=== PATIENT | male | born 1950 | race Caucasian/White ===

== ENCOUNTER → 2019-02-26 09:05 | Outpatient (CLI) | payer MEDICARE, SELFPAY ==
[2019-02-26 11:27] LABS: Prostate Specific Antigen 0.273 ng/mL (0.10-4.00)
== END ==
PROVIDERS: PCP Family Medicine; Visit Provider Radiology Radiation Oncology
DX: C61 Malignant neoplasm of prostate (principal)
CPT/HCPCS: 36415; 84153

== ENCOUNTER → 2019-05-01 09:15 | Outpatient (CLI) | payer OTHER, SELFPAY ==
--- NOTE | 2019-05-01 | DI.RAD.S_ITS ---
PROCEDURE: XR KUB INDICATIONS: KIDNEY STONES TECHNIQUE: One view of the abdomen acquired. COMPARISON: [facility], CT, ABDOMEN/PELVIS WITH CONTRAST, 05/09/2017, 10:19. [facility], MR, MR PELVIS WITHOUT CONTRAST, 08/29/2017, 13:14. FINDINGS: Surgical changes and devices: None. Bowel: Bowel gas pattern is normal. However, there is a relative prominence of bowel contents. Soft tissues: No suspicious abdominal calcifications. Visualized solid organ contours appear normal in size. Postoperative clips are seen overlying the low mid pelvis, which are attributed to this patient's previously placed prostate markers. Bones: No suspicious bony lesions. Age-appropriate bony degenerative changes are seen. IMPRESSION: No stones are seen. However, there is relatively prominent bowel contents and stones may be obscured. If clinically appropriate, please consider a followup noncontrast CT of the abdomen and pelvis. Dictated by: Benito Austin M.D. on 05/01/2019 at 9:57 Approved by: Benito Austin M.D. on 05/01/2019 at 9:59
== END ==
PROVIDERS: PCP Family Medicine; Visit Provider Specialist
DX: N20.0 Calculus of kidney (principal); C61 Malignant neoplasm of prostate
CPT/HCPCS: 36415; 74018; 84153

== ENCOUNTER → 2019-05-16 09:06 | Outpatient (CLI) | payer OTHER, SELFPAY ==
--- NOTE | 2019-05-16 09:11 | DI.CT.S_ITS ---
PROCEDURE: CT KIDNEY URETER BLADDER (KUB) INDICATIONS: Calculus of kidney TECHNIQUE: Noncontrast 5 mm thick sections acquired from the diaphragms to the symphysis. 5 mm thick coronal and sagittal reformats were then performed. For radiation dose reduction, the following was used: automated exposure control, adjustment of mA and/or kV according to patient size. COMPARISON: [facility], CT, ABDOMEN/PELVIS WITH CONTRAST, 05/09/2017, 10:19. [facility], CT, KIDNEY/ URETER/BLADDER, 09/17/2015, 10:22. FINDINGS: Image quality: Excellent. Lung bases: Lung bases are clear. Heart size is normal. Urinary system: Both kidneys are normal in size. Punctate left renal calculus versus dystrophic calcification seen on image 34 series 2 which is unchanged. Additional punctate calcifications in the right renal hilum on image 37 series 2 is unchanged. No hydronephrosis or perinephric fat stranding. Both ureters appear non-dilated throughout their expected courses. Bladder is partially decompressed although there is possible circumferential bladder wall thickening which appears chronic; no calcified bladder stones. Interval resolution of the previously seen bladder calculus. Other solid organs: Liver is normal in size. Gallbladder unremarkable. Pancreas is normal in contours. Nonspecific pancreatic calcifications in the body. Spleen is normal in size. No adrenal nodules. Peritoneum and bowel: Unenhanced bowel loops demonstrate normal wall thickness and caliber. No free fluid or air. Colonic diverticulosis. The rectum is grossly unremarkable. Normal appendix. Nodes and vessels: No retroperitoneal or mesenteric adenopathy by size criteria. Infrarenal abdominal aortic aneurysm measuring 3.5 x 3.8 cm on image 42 series 2 is slightly enlarged, previously 3.5 x 3.1 cm on 05/09/17. Recommend continued surveillance with serial ultrasound. Abdominal wall: Tiny fat-containing umbilical hernia Pelvis: Bilateral small fat-containing inguinal hernias. No pelvic adenopathy. Bones: No suspicious bony lesions. No vertebral body compression fractures. IMPRESSION: No evidence of urinary obstruction. Punctate bilateral renal calcifications as above which are grossly unchanged since 09/17/15. Interval resolution of bladder calculus. 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 Slight progression in small infrarenal abdominal aortic aneurysm. Recommend continued surveillance with serial ultrasound. Additional chronic and incidental findings as above. Dictated by: Juan Pablo Jama M.D. on 05/16/2019 at 10:42 Approved by: Juan Pablo Jama M.D. on 05/16/2019 at 10:59
== END ==
PROVIDERS: PCP Family Medicine; Visit Provider Specialist
DX: N20.0 Calculus of kidney (principal); I71.4 Abdominal aortic aneurysm, without rupture; K57.90 Diverticulosis of intestine, part unspecified, without perforation or abscess without bleeding; K40.20 Bilateral inguinal hernia, without obstruction or gangrene, not specified as recurrent
CPT/HCPCS: 74176

== ENCOUNTER → 2019-06-07 09:49 | Outpatient (CLI) | payer OTHER, SELFPAY ==
[2019-06-07 11:38] LABS: Prostate Specific Antigen 0.272 ng/mL (0.10-4.00)
== END ==
PROVIDERS: PCP Family Medicine; Visit Provider Radiology Radiation Oncology
DX: C61 Malignant neoplasm of prostate (principal)
CPT/HCPCS: 36415; 84153

== ENCOUNTER → 2019-12-20 08:42 | Outpatient (CLI) | payer OTHER, SELFPAY ==
[2019-12-20 10:27] LABS: Prostate Specific Antigen 0.146 ng/mL (0.10-4.00)
== END ==
PROVIDERS: Referring Provider Radiology Radiation Oncology; Visit Provider Radiology Radiation Oncology
DX: C61 Malignant neoplasm of prostate (principal)
CPT/HCPCS: 36415; 84153

== ENCOUNTER 2019-12-20 17:04 | Emergency (ER) | payer OTHER, SELFPAY ==
[2019-12-20 17:41] VITALS: BP 163/97; PULSE 75; RESP 16; TEMP 36.4; O2SAT 98; BMI 34.0
[2019-12-20 18:00] VITALS: BP 156/83; PULSE 85; RESP 21; O2SAT 95
[2019-12-20] MEDS: LIDOCAINE 2% W/EPI INJ 20 ML INJ (19:14)
[2019-12-20] MEDS: TRAMADOL 50 MG PREPACK 1 BOTTLE MISC (19:16)
[2019-12-20] MEDS: DOXYCYCLINE HYCLATE 100 MG TABLET PO (19:16)
--- NOTE | 2019-12-21 00:27 | ED_ITS ---
HPI - Skin/Abscess/Foreign Bdy <BOLA Paniagua - Last Filed: 12/21/19 00:52> General Chief complaint: Skin/Abscess/Foreign Body Stated complaint: states infected mass on inner right thigh Time Seen by Provider: 12/20/19 17:44 Source: patient Mode of arrival: Ambulatory Limitations: no limitations History of Present Illness HPI narrative: This is a 69-year-old male, smoker, who seeks care at [facility] was referred to ED for evaluation and treatment for right buttock abscess. Patient reports he noticed a small lump under right buttock 3- 4 weeks ago which progressively getting bigger and painful and states now it is about 3 In in diameter. Patient reports he had similar lump near the testis which did not require drainage. Patient denies fever, chills, nausea or vom iting. Patient states he has started taking old medication amoxicillin for 10 day course b.i.d. which she stopped 5 days ago without much improvement. Patient states at rest there is no pain but it increases to 10/10 with movement. Patient denies history of diabetes or immunosuppression. Patient reports has been having diarrhea for last 2 weeks with amoxicillin intake but denies bright red blood, dark stool, or odorous tarry stools. Related Data Home Medications Medication Instructions Recorded Confirmed ASPIRIN (Aspirin *) 325 mg PO #0 12/03/06 Previous Rx's Medication Instructions Recorded doxycycline hyclate 100 mg PO BID 7 Days #14 cap 12/20/19 Allergies Allergy/AdvReac Type Severity Reaction Status Date / Time ampicillin [AMPICILLIN] Allergy Unknown Verified 12/20/19 17:41 Review of Systems <BOLA Paniagua - Last Filed: 12/21/19 00:52> Review of Systems Narrative: General: Denies fever, chills, fatigue, malaise, sweats. HEENT: Denies sinus pain, ear pain, sore throat, difficulty swallowing, dizziness. Respiratory: Denies dyspnea, cough, wheezing, hemoptysis, sputum. Cardiovascular: Denies chest pain, palpitations, orthopnea, edema. Gastrointestinal: Denies nausea, vomiting, abdominal pain, (+) diarrhea, constipation, melena. : Denies dysuria, frequency, incontinence, hematuria, urinary retention. Musculoskeletal: Denies weakness, joint pain or bony pain. Skin: See HPI Neurologic: Denies weakness, headache, numbness, change in speech, confusion, seizures, incoordination. Psychiatric: No concerning psychosocial issues. 12-point review of systems is negative except for those stated above. Patient History <BOLA Paniagua - Last Filed: 12/21/19 00:52> Medical History GERD (gastroesophageal reflux disease) (Acute) Social History Smoking Status: Current every day smoker Smoking Status: Current every day smoker alcohol intake frequency: 0-2 drinks per day Substance Use Type: does not use Exam <BOLA Paniagua - Last Filed: 12/21/19 00:52> Narrative Exam Narrative: General appearance: well developed, well nourished, in moderate discomfort. Head: normocephalic, atraumatic, no scalp lesions, non-tender. ENT: Hearing difficulty. Nose without bleeding, purulent discharge. Mucous membrane moist, no mucosal lesion. Throat without erythema, tonsillar hypertrophy or exudate. Uvula in midline, airway patent. Neck/Thyroid: neck supple, full range of motion, no visible masses or meningeal signs. No JVD, non-tender without lymphadenopathy. Skin: 8x 10 cm with induration with small area of soft fluctuance in the middle on right gluteal fold with surrounding erythema, warmth, with exquisite discomfort to palpate. No drainage noted at this time. Heart: no clubbing, no cyanosis, no edema. S1 and S2 normal. RRR w/o murmurs, clicks, or bruits. Lungs: Breathing even and unlabored. No stridor. No accessory muscles used. Able to speak in full sentences. Chest: normal shape and expansion. Abdomen: non-obese, non-distended. Neurologic: alert and oriented. Cognitive exam, [employer] and PNS grossly intact on informal exam. Psych: good eye contact, normal affect. Initial Vital Signs Initial Vital Signs: Vital Signs Temperature 97.6 F 12/20/19 17:41 Pulse Rate 75 12/20/19 17:41 Respiratory Rate 16 12/20/19 17:41 Blood Pressure 163/97 H 05/07/20 17:41 Pulse Oximetry 98 05/07/20 17:41 <Dexter Jack DO - Last Filed: 12/21/19 04:49> Initial Vital Signs Initial Vital Signs: Vital Signs Temperature 97.6 F 12/20/19 17:41 Pulse Rate 75 12/20/19 17:41 Respiratory Rate 16 12/20/19 17:41 Blood Pressure 163/97 H 12/20/19 17:41 Pulse Oximetry 98 12/20/19 17:41 Procedures <BOLA Paniagua - Last Filed: 12/21/19 00:52> Abscess I/D I&D #1: Site: other (right gluteal fold) Side (if applicable): right Local Anesthetic: lidocaine 2% Amount of anesthesia used (mL): 4 Technique: incised with #11 blade Irrigation: Yes Packing used?: plain Scores <BOLA Paniagua - Last Filed: 12/21/19 00:52> GCS Yovany coma scale eye opening: Spontaneous Rickreall coma scale verbal response: Orientated Rickreall coma scale motor response: Obey commands Rickreall coma scale total score: 15 Course <BOLA Paniagua - Last Filed: 12/21/19 00:52> Orders Ordered: Discontinued Medications Doxycycline Hyclate (Vibramycin) 100 mg PO NOW ONE Stop: 12/20/19 19:10 Last Admin: 12/20/19 19:16 Dose: 100 mg Documented by: ELENA Lidocaine/Epinephrine (Xylocaine 2% W/Epi) 20 ml INJ INTRA-OP ONE Stop: 12/20/19 17:46 Last Admin: 12/20/19 19:14 Dose: 20 ml Documented by: ELENA Tramadol HCl (Ultram 50mg Prepack) 1 bottle MISC SEEINSTR ONE Stop: 12/20/19 19:10 Last Admin: 12/20/19 19:16 Dose: 1 bottle Documented by: ELENA Vital Signs Vital signs: Vital Signs - 8 hr 12/20/19 17:41 12/20/19 18:00 Temperature 97.6 F Pulse Rate 75 85 Respiratory Rate 16 21 Blood Pressure 163/97 H Blood Pressure [Right Arm] 156/83 H Pulse Oximetry 98 95 <Dexter Jack DO - Last Filed: 12/21/19 04:49> Orders Ordered: Discontinued Medications Doxycycline Hyclate (Vibramycin) 100 mg PO NOW ONE Stop: 12/20/19 19:10 Last Admin: 12/20/19 19:16 Dose: 100 mg Documented by: ELENA Lidocaine/Epinephrine (Xylocaine 2% W/Epi) 20 ml INJ INTRA-OP ONE Stop: 12/20/19 17:46 Last Admin: 12/20/19 19:14 Dose: 20 ml Documented by: ELENA Tramadol HCl (Ultram 50mg Prepack) 1 bottle MISC SEEINSTR ONE Stop: 12/20/19 19:10 Last Admin: 12/20/19 19:16 Dose: 1 bottle Documented by: ELENA Vital Signs Vital signs: Vital Signs - 8 hr 12/20/19 17:41 12/20/19 18:00 Temperature 97.6 F Pulse Rate 75 85 Respiratory Rate 16 21 Blood Pressure 163/97 H Blood Pressure [Right Arm] 156/83 H Pulse Oximetry 98 95 MDM - Skin/Abscess/Foreign Bdy <BOLA Paniagua - Last Filed: 12/21/19 00:52> Differential Diagnosis Differential diagnosis: Likely abscess of skin or subcutaneous tissue and cellulitis Medical Records Attestation: I reviewed the patient's medical records. MDM Narrative Medical decision making narrative: This is 69-year-old gentleman who presents to ED with the right gluteal fold abscess which started 3-4 weeks ago with a small lump which has been progressively growing in size with increasing pain. Patient states he had taken 10 day course of amoxicillin 500 mg b.i.d. dose for 10 days which he stop taking 5 days ago without much improvement. Patient had not use any medications for pain or warm packed on affected site and has not noticed any drainage from it. Pain is very exquisite with movement and sitting on affected site. Patient denies constitutional symptoms but has been having loose stool without blood, tarry or odorous around the same time taking amoxicillin. Stool sample was requested but patient states unable to provided at this time since he has been taking Imodium to treat diarrhea. Right buttock abscess has been drained by I&D. Please see procedure note and obtained copious amount of thick prulent discharge/abscess along small amount of blood. Wound culture is pending. Patient was medicated with doxycycline to surrounding cellulitis on a single abscess in size measuring approximately 8 x 10 cm. Patient advised to return to ED in 2 days for wound recheck and repacking. I discussed with spouse who is willing to assist with wound packing procedure at home for the patient who is anticipated to learn during next visit. Return precautions were discussed and patient started on doxycycline for empiric treatment and discharged to home with prepack of tramadol for severe pain management along narcotic medication precautions. Patient verbalized the understanding and in agreement with the treatment plan. Discharge Plan Departure Patient Disposition: Home Clinical Impression: Abscess of buttock, right, Encounter for incision and drainage procedure Discharge Date/Time: 12/20/19 19:33 Instructions: DI for Cellulitis -- Adult, DI for Incision and Drainage of a Skin Abscess Activity Restrictions/Additional Instructions: You have been diagnosed with [right buttock abscess which has been incised and drained. You will receive a phone call if you require different antibiotic medication after the wound culture results. You can take shby-zun-cimhadc Tylenol and or Motrin as needed for discomfort as 1st line treatment. You can take tramadol that you are going home with for severe pain. This is narcotic medications if he can cause drowsiness so please take precaution such as not driving, drinking alcohol or operating heavy equipments. He can also cause constipation so please take precautions. You will require to use warm pack on affected side 3 to 4 times a day for 30 minutes. Also you can soak in warm water in clean bath tub twice a day as needed. This will help healing. Please continue to take doxycycline which is antibiotic medication twice a day for next 7 days. You are given with 1st dose in the ED. please take probiotics when her taking antibiotic medication to decreased GI symptoms such as diarrhea.]. What to do: *Take your medications as directed. Doxycycline has been transmitted to [facility] in [place]. *Follow up with your primary care provider in 2-3 days, call for an appointment. If [facility] is unable to see you for dressing change, please come to ED in 2 days for wound recheck and repacking her wound. Please try to learn how to manage wound care at home on that day. Let them know you were seen in the ED and that we asked you to be seen in follow up. *Return to ED if you have any new, worsening, or concerning symptoms, such as [fever, chills, increasing pain, chest pain, breathing difficulty, feeling like fainting, or any acute concerns.]. Prescriptions: New doxycycline hyclate 100 mg capsule 100 mg PO BID 7 Days Qty: 14 RF: 0 No Action ASPIRIN (Aspirin *) 325 mg PO Qty: 0 RF: 0 <Dexter Jack DO - Last Filed: 12/21/19 04:49> Cosign ED Attending Cosignature Attestation: I was immediately available in the department for consultation. This documentation has been reviewed and I agree with assessment and plan. Supervised by Dexter Jack DO
--- NOTE | 2019-12-21 12:26 | PC.NURSE ---
Pt's called stating that wound packing had fallen out. Reviewed [facility] note which does state that pt was instructed to return for re packing in two days. further stated that pt was groggy and sleeping all the time and out of it. Instructed to immediately return to ED for further evaluation.
== END 2019-12-20 19:33 | disposition home or self-care (01) ==
PROVIDERS: Emergency Provider Nurse Practitioner Family
DX: L02.31 Cutaneous abscess of buttock (principal); C61 Malignant neoplasm of prostate
CPT/HCPCS: 10060; 36415; 84153; 87070; 87075; 87077; 87147; 87186; 87205; 99283; 99284

== ENCOUNTER 2019-12-21 13:48 | Emergency (ER) | payer OTHER, SELFPAY ==
[2019-12-21 13:50] VITALS: BP 154/77; PULSE 97; RESP 18; TEMP 36.9; O2SAT 95
[2019-12-21 14:15] VITALS: BP 158/80; PULSE 98; RESP 17; O2SAT 95
[2019-12-21 14:33] LABS: INR 1.3 (0.9-1.3)
--- NOTE | 2019-12-21 14:34 | ED_ITS ---
HPI - Recheck/Abnormal Lab/Rx <BOLA Lo - Last Filed: 12/21/19 18:16> General Chief Complaint: Recheck/Abnormal Lab/Rx Stated Complaint: per phs called in Time Seen by Provider: 12/21/19 13:52 Source: patient and family Mode of arrival: Ambulatory Limitations: no limitations History of Present Illness HPI narrative: 69yo male was seen in the emergency department on 12/20/2019 for abscess I&D and was started on doxycycline for surrounding cellulitis. Patient returns to the emergency department for repacking of wound. Upon discussion with the triage nurse, patient's noted that patient has been sleeping most of yesterday with increasing fatigue. He states the pain has significantly resolved but he has been ?wiped out? from everything going on. Patient denies fever, chest pain, cough, shortness of breath, nausea, vomiting, diarrhea, or any other concerns. states she change the bandage today, there was a small amount of discharge on the dressing, no discharge from the wound. Patient states has had 2 doses of doxycycline, 1 dose last evening and 1 dose this morning. Related Data Home Medications Medication Instructions Recorded Confirmed omeprazole 20 mg PO DAILY 12/21/19 12/21/19 Previous Rx's Medication Instructions Recorded doxycycline hyclate 100 mg PO BID 7 Days #14 cap 12/20/19 ondansetron HCl 4 mg PO Q6H PRN #14 tab 12/21/19 Allergies Allergy/AdvReac Type Severity Reaction Status Date / Time ampicillin [AMPICILLIN] Allergy Unknown Verified 12/21/19 14:15 Review of Systems <BOLA Lo - Last Filed: 12/21/19 18:16> Review of Systems Narrative: REVIEW OF SYSTEMS: GENERAL: Denies fever or chills. HENT: Denies head trauma. EYE: No vision changes. CARDIOVASCULAR: Denies syncope. MUSCULOSKELETAL: Denies weakness, or deformities. INTEGUMENTARY: Complains of abscess to right gluteal fold, see HPI. NEURO: Denies numbness or tingling. Patient History <BOLA Lo - Last Filed: 12/21/19 18:16> Medical History GERD (gastroesophageal reflux disease) (Acute) Social History Smoking Status: Current every day smoker Smoking Status: Current every day smoker alcohol intake frequency: 0-2 drinks per day Substance Use Type: does not use Exam <BOLA Lo - Last Filed: 12/21/19 18:16> Initial Vital Signs Initial Vital Signs: Vital Signs Temperature 98.5 F 12/21/19 13:50 Pulse Rate 97 H 12/21/19 13:50 Respiratory Rate 18 12/21/19 13:50 Blood Pressure 154/77 H 12/21/19 13:50 Pulse Oximetry 95 12/21/19 13:50 PHYSICAL EXAMINATION: GENERAL: Well groomed, alert, and cooperative. Answers questions promptly and appropriately. Vital signs noted. HENT: Normocephalic, atraumatic. RESPIRATORY: Normal respiratory rate, trachea midline, airway patent. No stridor, nasal flaring or accessory muscle use. MUSCULOSKELETAL: Normal gait and coordination. Equal tone and mass bilaterally. EXTREMITIES: CMS intact. Moves all extremities. SKIN: Warm, dry, soft, appropriate color for ethnicity. Patient's wound is located on the medial aspect of the right gluteal fold, small amount of clear yellow drainage noted on dressing, there is a 8 x 10 area of surrounding redness, very minute amount of purulent drainage noted from wound after manual manipulation. Patient denies significant tenderness with palpation of wound. No fluctuance. NEURO: Alert and Oriented X 3. Good coordination. PSYCH: Appropriate affect and mood. <Renetta Umana DO - Last Filed: 12/26/19 09:32> Initial Vital Signs Initial Vital Signs: Vital Signs Temperature 98.5 F 12/21/19 13:50 Pulse Rate 97 H 12/21/19 13:50 Respiratory Rate 18 12/21/19 13:50 Blood Pressure 154/77 H 12/21/19 13:50 Pulse Oximetry 95 12/21/19 13:50 Course <BOLA Lo - Last Filed: 12/21/19 18:16> Course Course Narrative: Laboratory work was drawn due to increasing fatigue for concerns of systemic infection. Patient was given fluid please resend dehydration in urine and low sodium. Orders Ordered: Discontinued Medications Sodium Chloride (Normal Saline 0.9%) 1,000 mls @ 1,000 mls/hr IV BOLUS ONE Stop: 12/21/19 15:34 Last Infusion: 12/21/19 15:57 Dose: 1,000 mls/hr Documented by: Admin: 12/21/19 14:54 Dose: 1,000 mls/hr Documented by: JERARDO Ondansetron HCl (Zofran Odt) 4 mg SL NOW ONE Stop: 12/21/19 15:31 Last Admin: 12/21/19 15:45 Dose: 4 mg Documented by: JERARDO Consultations Consultation #1: Patient staffed with Dr Bah discussed examination, results, and plan. Discussed doses of oral versus IV antibiotics. Vital Signs Vital signs: Vital Signs - 8 hr 12/21/19 13:50 12/21/19 14:15 12/21/19 15:00 Temperature 98.5 F Pulse Rate 97 H 98 H 93 H Respiratory Rate 18 17 17 Blood Pressure 154/77 H Blood Pressure [Left Arm] 158/80 H 142/66 H Pulse Oximetry 95 95 97 12/21/19 16:07 Temperature Pulse Rate 92 H Respiratory Rate 16 Blood Pressure 156/78 H Blood Pressure [Left Arm] Pulse Oximetry 98 <Renetta Umana, DO - Last Filed: 12/26/19 09:32> Orders Ordered: Discontinued Medications Sodium Chloride (Normal Saline 0.9%) 1,000 mls @ 1,000 mls/hr IV BOLUS ONE Stop: 12/21/19 15:34 Last Infusion: 12/21/19 15:57 Dose: 1,000 mls/hr Documented by: Admin: 12/21/19 14:54 Dose: 1,000 mls/hr Documented by: JERARDO Ondansetron HCl (Zofran Odt) 4 mg SL NOW ONE Stop: 12/21/19 15:31 Last Admin: 12/21/19 15:45 Dose: 4 mg Documented by: JERARDO Vital Signs Vital signs: Vital Signs - 8 hr 12/21/19 13:50 12/21/19 14:15 12/21/19 15:00 Temperature 98.5 F Pulse Rate 97 H 98 H 93 H Respiratory Rate 18 17 17 Blood Pressure 154/77 H Blood Pressure [Left Arm] 158/80 H 142/66 H Pulse Oximetry 95 95 97 12/21/19 16:07 Temperature Pulse Rate 92 H Respiratory Rate 16 Blood Pressure 156/78 H Blood Pressure [Left Arm] Pulse Oximetry 98 MDM - Recheck/Abnormal Lab/Rx <Celsa PatrickBOLA - Last Filed: 12/21/19 18:16> Medical Records Attestation: I reviewed the patient's medical records. Lab Data Attestation: I reviewed the patient's lab results. Result diagrams: 12/21/19 14:05 12/21/19 14:05 Labs: Lab Results 12/21/19 12/21/19 12/21/19 Range/Units 14:05 14:05 14:05 WBC 9.2 (4.5-11.0) X10^3/uL RBC 4.80 (4.5-5.9) X10^6/uL Hgb 15.3 (13.5-17.5) g/dL Hct 44.3 (41-53) % MCV 92.1 (80-100) fL MCH 31.8 (26-34) PG MCHC 34.5 (30-36) % RDW 13.8 (11.6-14.8) % Plt Count 226 (150-400) X10^3/uL Neut % (Auto) 91.7 H (50-75) % Lymph % (Auto) 3.3 L (25-40) % Ritchie % (Auto) 4.6 (3-14) % Eos % (Auto) 0.1 L (2-4) % Baso % (Auto) 0.3 (0-2) % Neut # (Auto) 8400 H (8636-7224) /uL Lymph # (Auto) 300 L (3849-1938) /uL Ritchie # (Auto) 400 (0-900) /uL Eos # (Auto) 0 (0-450) /uL Baso # (Auto) 0 (0-100) /uL PT 15.0 H (10.1-12.7) SECONDS INR 1.3 (0.9-1.3) APTT 31 (26.4-36.2) SECONDS Sodium (137-145) mmol/L Potassium (3.4-5.1) mmol/L Chloride (98-107) mmol/L Carbon Dioxide (22-32) mmol/L BUN (9-20) mg/dL Creatinine (0.66-1.25) mg/dL Estimated GFR (>60) mL/min BUN/Creatinine Ratio (6-22) Glucose (80-110) mg/dL Lactate (0.7-2.1) mmol/L Calcium (8.4-10.2) mg/dL Total Bilirubin (0.2-1.3) mg/dL AST (17-59) IU/L ALT (<50) IU/L Alkaline Phosphatase (38-126) U/L Total Protein (6.3-8.2) g/dL Albumin (3.5-5.0) g/dL Globulin (1.7-4.1) g/dL Albumin/Globulin Ratio (1.0-2.8) Lipase (23-300) U/L Procalcitonin 0.08 (<0.5) ng/mL Urine RBC (0-5/HPF) Urine WBC (0-5/HPF) Ur Squamous Epith Cells (0-5/HPF) Urine Bacteria (None) Hyaline Casts (None) Ur Culture Indicated? 12/21/19 12/21/19 12/21/19 Range/Units 14:05 14:05 15:16 WBC (4.5-11.0) X10^3/uL RBC (4.5-5.9) X10^6/uL Hgb (13.5-17.5) g/dL Hct (41-53) % MCV (80-100) fL MCH (26-34) PG MCHC (30-36) % RDW (11.6-14.8) % Plt Count (150-400) X10^3/uL Neut % (Auto) (50-75) % Lymph % (Auto) (25-40) % Ritchie % (Auto) (3-14) % Eos % (Auto) (2-4) % Baso % (Auto) (0-2) % Neut # (Auto) (9668-3329) /uL Lymph # (Auto) (3795-3458) /uL Ritchie # (Auto) (0-900) /uL Eos # (Auto) (0-450) /uL Baso # (Auto) (0-100) /uL PT (10.1-12.7) SECONDS INR (0.9-1.3) APTT (26.4-36.2) SECONDS Sodium 131 L (137-145) mmol/L Potassium 3.6 (3.4-5.1) mmol/L Chloride 99 (98-107) mmol/L Carbon Dioxide 23 (22-32) mmol/L BUN 7 L (9-20) mg/dL Creatinine 0.70 (0.66-1.25) mg/dL Estimated GFR > 60.0 (>60) mL/min BUN/Creatinine Ratio 10.0 (6-22) Glucose 120 H (80-110) mg/dL Lactate 0.9 (0.7-2.1) mmol/L Calcium 8.5 (8.4-10.2) mg/dL Total Bilirubin 0.9 (0.2-1.3) mg/dL AST 23 (17-59) IU/L ALT 17 (<50) IU/L Alkaline Phosphatase 66 (38-126) U/L Total Protein 7.4 (6.3-8.2) g/dL Albumin 4.1 (3.5-5.0) g/dL Globulin 3.3 (1.7-4.1) g/dL Albumin/Globulin Ratio 1.2 (1.0-2.8) Lipase 89 (23-300) U/L Procalcitonin (<0.5) ng/mL Urine RBC 0-1/hpf (0-5/HPF) Urine WBC 0-1/hpf (0-5/HPF) Ur Squamous Epith Cells 0-1 /hpf (0-5/HPF) Urine Bacteria None seen (None) Hyaline Casts 0-1/lpf (None) Ur Culture Indicated? Cult not indicated Urine Dip Bedside Urine Glucose Negative Bedside Urine Bilirubin - Negative Bedside Urine Ketone ++ 40 Urine Specific [place] 1.015 Bedside Urine Occult Blood - Negative Bedside Urine pH 6 Bedside Urine Protein - Negative Bedside Urine Urobilinogen - Negative Bedside Urine Nitrite - Negative Bedside Urine Leukocytes - Negative Esterase MDM Narrative Medical decision making narrative: 69-year-old male returns emergency department for re-evaluation initially due to packing falling out. However, patient reported increased fatigue over the past day. Upon re-evaluation wound appears to be healing with less discharge. Patient has had 2 doses of oral antibiotics in the past 24 hours. Laboratory work shows normal white blood cell count with low sodium. Urine shows dehydration. Patient was given a L fluids. He was given a dose of ondansetron to help with nausea, patient was seen eating and drinking emergency department difficulty. Patient was asking to go home. Symptoms are most likely caused by a healing abscess and cellulitis. Less likely sepsis due to white blood cell count of 9, non tachycardic, afebrile, and lack of worsening vision of wound. We discussed with patient since the packing fell out, repacking was not needed as long as he continues antibiotics. Discussed continuing doxycycline, culture shows Gram-positive cocci, nonspecific at this time. Doxycycline covers most Gram-positive cocci, no change in antibiotics or addition of further antibiotics needed. Patient was encouraged to drink lots of fluid. He was encouraged to return emergency department for any new or worsening symptoms. Patient and family agreed to plan of care radha balized understanding. <Renetta Umana, DO - Last Filed: 12/26/19 09:32> Lab Data Labs: Lab Results 12/21/19 12/21/19 12/21/19 Range/Units 14:05 14:05 14:05 WBC 9.2 (4.5-11.0) X10^3/uL RBC 4.80 (4.5-5.9) X10^6/uL Hgb 15.3 (13.5-17.5) g/dL Hct 44.3 (41-53) % MCV 92.1 (80-100) fL MCH 31.8 (26-34) PG MCHC 34.5 (30-36) % RDW 13.8 (11.6-14.8) % Plt Count 226 (150-400) X10^3/uL Neut % (Auto) 91.7 H (50-75) % Lymph % (Auto) 3.3 L (25-40) % Ritchie % (Auto) 4.6 (3-14) % Eos % (Auto) 0.1 L (2-4) % Baso % (Auto) 0.3 (0-2) % Neut # (Auto) 8400 H (5425-9914) /uL Lymph # (Auto) 300 L (2933-8546) /uL Ritchie # (Auto) 400 (0-900) /uL Eos # (Auto) 0 (0-450) /uL Baso # (Auto) 0 (0-100) /uL PT 15.0 H (10.1-12.7) SECONDS INR 1.3 (0.9-1.3) APTT 31 (26.4-36.2) SECONDS Sodium (137-145) mmol/L Potassium (3.4-5.1) mmol/L Chloride (98-107) mmol/L Carbon Dioxide (22-32) mmol/L BUN (9-20) mg/dL Creatinine (0.66-1.25) mg/dL Estimated GFR (>60) mL/min BUN/Creatinine Ratio (6-22) Glucose (80-110) mg/dL Lactate (0.7-2.1) mmol/L Calcium (8.4-10.2) mg/dL Total Bilirubin (0.2-1.3) mg/dL AST (17-59) IU/L ALT (<50) IU/L Alkaline Phosphatase (38-126) U/L Total Protein (6.3-8.2) g/dL Albumin (3.5-5.0) g/dL Globulin (1.7-4.1) g/dL Albumin/Globulin Ratio (1.0-2.8) Lipase (23-300) U/L Procalcitonin 0.08 (<0.5) ng/mL Urine RBC (0-5/HPF) Urine WBC (0-5/HPF) Ur Squamous Epith Cells (0-5/HPF) Urine Bacteria (None) Hyaline Casts (None) Ur Culture Indicated? 12/21/19 12/21/19 12/21/19 Range/Units 14:05 14:05 15:16 WBC (4.5-11.0) X10^3/uL RBC (4.5-5.9) X10^6/uL Hgb (13.5-17.5) g/dL Hct (41-53) % MCV (80-100) fL MCH (26-34) PG MCHC (30-36) % RDW (11.6-14.8) % Plt Count (150-400) X10^3/uL Neut % (Auto) (50-75) % Lymph % (Auto) (25-40) % Ritchie % (Auto) (3-14) % Eos % (Auto) (2-4) % Baso % (Auto) (0-2) % Neut # (Auto) (5537-3149) /uL Lymph # (Auto) (5941-9481) /uL Ritchie # (Auto) (0-900) /uL Eos # (Auto) (0-450) /uL Baso # (Auto) (0-100) /uL PT (10.1-12.7) SECONDS INR (0.9-1.3) APTT (26.4-36.2) SECONDS Sodium 131 L (137-145) mmol/L Potassium 3.6 (3.4-5.1) mmol/L Chloride 99 (98-107) mmol/L Carbon Dioxide 23 (22-32) mmol/L BUN 7 L (9-20) mg/dL Creatinine 0.70 (0.66-1.25) mg/dL Estimated GFR > 60.0 (>60) mL/min BUN/Creatinine Ratio 10.0 (6-22) Glucose 120 H (80-110) mg/dL Lactate 0.9 (0.7-2.1) mmol/L Calcium 8.5 (8.4-10.2) mg/dL Total Bilirubin 0.9 (0.2-1.3) mg/dL AST 23 (17-59) IU/L ALT 17 (<50) IU/L Alkaline Phosphatase 66 (38-126) U/L Total Protein 7.4 (6.3-8.2) g/dL Albumin 4.1 (3.5-5.0) g/dL Globulin 3.3 (1.7-4.1) g/dL Albumin/Globulin Ratio 1.2 (1.0-2.8) Lipase 89 (23-300) U/L Procalcitonin (<0.5) ng/mL Urine RBC 0-1/hpf (0-5/HPF) Urine WBC 0-1/hpf (0-5/HPF) Ur Squamous Epith Cells 0-1 /hpf (0-5/HPF) Urine Bacteria None seen (None) Hyaline Casts 0-1/lpf (None) Ur Culture Indicated? Cult not indicated Urine Dip Bedside Urine Glucose Negative Bedside Urine Bilirubin - Negative Bedside Urine Ketone ++ 40 Urine Specific [place] 1.015 Bedside Urine Occult Blood - Negative Bedside Urine pH 6 Bedside Urine Protein - Negative Bedside Urine Urobilinogen - Negative Bedside Urine Nitrite - Negative Bedside Urine Leukocytes - Negative Esterase Discharge Plan Departure Patient Disposition: Home Clinical Impression: Abscess of buttock, right Discharge Date/Time: 12/21/19 16:07 Activity Restrictions/Additional Instructions: Thank you for entrusting me with your care today. As discussed, your laboratory work is non-remarkable. Your wound is healing and does not need for the packing at this time. Please continue to take your antibiotics as prescribed. Follow up with your primary care provider in the next week for further evaluation if symptoms continue. I have sent nausea medication to [facility] in [place]. Return emergency department for any new or worsening symptoms such as severe pain, fevers, vomiting, dizziness, chest pain, worsening redness or any other concerns. Prescriptions: New ondansetron HCl 4 mg tablet 4 mg PO Q6H PRN (Reason: nausea and vomiting) Qty: 14 RF: 0 No Action doxycycline hyclate 100 mg capsule 100 mg PO BID 7 Days Qty: 14 RF: 0 omeprazole 20 mg Capsule,Delayed Release(Dr/Ec) 20 mg PO DAILY RF: 0
[2019-12-21 14:35] LABS: Add Manual Diff / Slide Review NO; Basophils Absolute Auto 0 /uL (0-100); Basophils Percent Auto 0.3 % (0-2); Eosinophils Absolute Auto 0 /uL (0-450); Eosinophils Percent Auto 0.1 % (2-4); Hematocrit 44.3 % (41-53); Hemoglobin 15.3 g/dL (13.5-17.5); Lymphocytes Absolute Auto 300 /uL (1100-4500); Lymphocytes Percent Auto 3.3 % (25-40); Mean Corpuscular HGB Conc 34.5 % (30-36); Mean Corpuscular Hemoglobin 31.8 PG (26-34); Mean Corpuscular Volume 92.1 fL (80-100); Monocytes Absolute Auto 400 /uL (0-900); Monocytes Percent Auto 4.6 % (3-14); Neutrophils Absolute Auto 8400 /uL (1500-7000); Neutrophils Percent Auto 91.7 % (50-75); Platelet Count 226 X10^3/uL (150-400); Red Cell Distribution Width 13.8 % (11.6-14.8); White Blood Cell Count 9.2 X10^3/uL (4.5-11.0)
[2019-12-21 14:36] LABS: PTT Partial Thromboplastin Tim 31 SECONDS (26.4-36.2)
[2019-12-21 14:41] LABS: Lactate (Lactic Acid) 0.9 mmol/L (0.7-2.1)
[2019-12-21 14:42] LABS: Alanine Aminotransferase 17 IU/L (<50); Albumin 4.1 g/dL (3.5-5.0); Albumin Globulin Ratio 1.2 (1.0-2.8); Alkaline Phosphatase 66 U/L (38-126); Aspartate Aminotransferase 23 IU/L (17-59); Bilirubin Total 0.9 mg/dL (0.2-1.3); Blood Urea Nitrogen 7 mg/dL (9-20); Calcium 8.5 mg/dL (8.4-10.2); Carbon Dioxide 23 mmol/L (22-32); Chloride 99 mmol/L (98-107); Estimated Glomerular Filt Rate > 60.0 mL/min (>60); Globulin 3.3 g/dL (1.7-4.1); Glucose 120 mg/dL (80-110); HEMOLYSIS < 15 (0-50); Lipase 89 U/L (23-300); Potassium 3.6 mmol/L (3.4-5.1); Sodium 131 mmol/L (137-145); Total Protein 7.4 g/dL (6.3-8.2)
[2019-12-21] MEDS: SODIUM CHLORIDE 0.9% 1,000 ML 1000 ML IV (14:54)
[2019-12-21 14:56] LABS: Procalcitonin 0.08 ng/mL (<0.5)
[2019-12-21 15:00] VITALS: BP 142/66; PULSE 93; RESP 17; O2SAT 97
[2019-12-21 15:18] LABS: Bacteria Urine None Seen
[2019-12-21 15:34] LABS: Culture Indicated Urine Cult Not Indicated; Hyaline Casts Urine 0-1/LPF; RBC Urine 0-1/HPF (0-5/HPF); Squamous Epithelial Cell Urine 0-1 /HPF (0-5/HPF); WBC Urine 0-1/HPF (0-5/HPF)
[2019-12-21] MEDS: ONDANSETRON 4 MG ODT SL (15:45)
[2019-12-21 16:07] VITALS: BP 156/78; PULSE 92; RESP 16; O2SAT 98
== END 2019-12-21 16:07 | disposition home or self-care (01) ==
PROVIDERS: Emergency Provider Nurse Practitioner
DX: L02.31 Cutaneous abscess of buttock (principal)
CPT/HCPCS: 36415; 80053; 81003; 81015; 83605; 83690; 84145; 85025; 85610; 85730; 96360; 99284

== ENCOUNTER → 2020-04-24 11:34 | Outpatient (CLI) | payer OTHER, SELFPAY ==
[2020-04-24 12:50] LABS: Prostate Specific Antigen 0.537 ng/mL (0.10-4.00)
== END ==
PROVIDERS: Referring Provider Radiology Radiation Oncology; Visit Provider Radiology Radiation Oncology
DX: C61 Malignant neoplasm of prostate (principal)
CPT/HCPCS: 36415; 84153

== ENCOUNTER → 2020-10-16 15:18 | Outpatient (CLI) | payer MEDICARE, SELFPAY ==
[2020-10-16 16:54] LABS: Prostate Specific Antigen 0.261 ng/mL (0.10-4.00)
== END ==
PROVIDERS: Referring Provider Radiology Radiation Oncology; Visit Provider Radiology Radiation Oncology
DX: C61 Malignant neoplasm of prostate (principal)
CPT/HCPCS: 36415; 84153

== ENCOUNTER → 2021-04-17 10:13 | Outpatient (CLI) | payer OTHER, SELFPAY ==
[2021-04-17 11:50] LABS: Prostate Specific Antigen 0.282 ng/mL (0.10-4.00)
== END ==
PROVIDERS: Referring Provider Radiology Radiation Oncology; Visit Provider Radiology Radiation Oncology
DX: C61 Malignant neoplasm of prostate (principal)
CPT/HCPCS: 36415; 84153

== ENCOUNTER → 2021-05-13 13:27 | Outpatient (CLI) | payer MEDICARE, SELFPAY ==
--- NOTE | 2021-05-13 | DI.MRI.S_ITS ---
PROCEDURE: MR KNEE LT WO CON INDICATIONS: Pain in left knee TECHNIQUE: Noncontrast sagittal PD fast spin echo and T2 fast spin echo with fat saturation, sagittal 3-D FLASH with fat saturation; coronal T1 spin echo and PD fast spin echo with fat saturation, and axial PD fast spin echo with fat saturation through the knee. COMPARISON: [facility] [place], [place], XR KNEE 4+ VIEWS LEFT, 04/29/2021, 15:25. FINDINGS: Image quality: Excellent. Menisci: Medial extrusion of the medial meniscus is present. There is linear horizontal high signal intensity traversing the anterior horn, body, and posterior horn medial meniscus, demonstrating inferior articular surface extension, indicating horizontal tearing. Horizontally oriented linear high signal intensity traverses the lateral meniscal body, demonstrating free edge extension, indicating horizontal tearing. Cruciate ligaments: The anterior and posterior cruciate ligaments appear intact. Medial structures: The medial collateral ligament appears intact. Mild T2 signal elevation surrounds the medial collateral ligament. Visualized portions of the pes anserinus tendons appear normal. No abnormal bursal fluid. Lateral structures: The lateral collateral ligament, long and short heads of the biceps femoris tendon appear intact. The popliteus tendon appears normal. Iliotibial band appears normal. Anterior structures: The quadriceps and patellar tendons appear intact. There is mild T2 signal elevation within the quadriceps and patellar tendons at the patellar insertion sites. Patellar alignment is normal. No femoral trochlear dysplasia or ventral trochlear prominence. No edema in the infrapatellar fat pad. Bones and cartilage: No bone marrow contusions or fractures. There is moderate subchondral degenerative marrow edema and subchondral cyst formation within the medial and lateral femoral trochlea. There is mild tricompartmental periarticular osteophyte formation. Moderate articular cartilage loss diffusely overlies the weight-bearing aspects of the medial femoral condyle and medial tibial plateau. Mild articular cartilage loss diffusely overlies the weight-bearing aspects of the lateral femoral condyle and lateral tibial plateau. Moderate articular cartilage loss overlies the medial and lateral patellar facets as well as the medial and lateral femoral trochlea. Joint space: There is a small knee joint effusion and a trace Benavidez's cyst. Normal appearing synovial plicae are incidentally noted. IMPRESSION: 1. Tricompartmental osteoarthritis with associated articular cartilage loss. 2. Medial and lateral meniscal tearing. 3. Small knee joint effusion and trace Benavidez's cyst. 4. MCL strain. 5. Quadriceps and patellar tendinopathy. Dictated by: Albert Vivas M.D. on 05/13/2021 at 14:44 Approved by: Albert Vivas M.D. on 05/13/2021 at 15:49
== END ==
PROVIDERS: Referring Provider Orthopaedic Surgery; Visit Provider Orthopaedic Surgery
DX: M25.562 Pain in left knee (principal); S83.282A Other tear of lateral meniscus, current injury, left knee, initial encounter; S83.412A Sprain of medial collateral ligament of left knee, initial encounter; S83.242A Other tear of medial meniscus, current injury, left knee, initial encounter; M17.12 Unilateral primary osteoarthritis, left knee; M25.462 Effusion, left knee
CPT/HCPCS: 73721

== ENCOUNTER → 2022-01-06 11:42 | Outpatient (CLI) | payer OTHER, SELFPAY ==
--- NOTE | 2022-01-06 | DI.US.S_ITS ---
PROCEDURE: US RENAL COMPLETE INDICATIONS: RIGHT RENAL LESION TECHNIQUE: Real-time scanning was performed of the kidneys and bladder, with image documentation. COMPARISON: Outside Film, CT, CT CHEST ABDOMEN PELVIS WITH CONTRAST, 11/16/2021, 8:32. FINDINGS: Kidneys: Kidneys are normal in size. Right kidney measures 14.4 cm long; left kidney measures 13.4 cm long. Right renal cortical thickness is 1.7 cm; left renal cortical thickness is 1.1 cm. Renal cortical echotexture is normal. No hydronephrosis or nephrolithiasis. No suspicious solid mass lesions. Specifically, the right inferior pole renal mass visualized on the comparison CT dated November 16, 2021 is not visualized by ultrasound. Bladder: Nondistended. Miscellaneous: No free pelvic fluid. IMPRESSION: 1. No suspicious renal mass lesions visualized by ultrasound. This includes the mass visualized on the comparison CT dated November 16, 2021. This lesion is sonographically occult. 2. No hydronephrosis or nephrolithiasis. Dictated by: Shyla Gusman M.D. on 01/06/2022 at 13:13 Approved by: Shyla Gusman M.D. on 01/06/2022 at 13:16
== END ==
DX: N28.89 Other specified disorders of kidney and ureter (principal); Z01.89 Encounter for other specified special examinations
CPT/HCPCS: 76770

== ENCOUNTER → 2022-10-26 13:10 | Outpatient (CLI) | payer OTHER, MEDICARE, SELFPAY ==
--- NOTE | 2022-10-26 13:17 | DI.RAD.S_ITS ---
PROCEDURE: XR CHEST 2V INDICATIONS: LUNG CANCER TECHNIQUE: 2 views of the chest were acquired. COMPARISON: Outside Film, CT, CT CHEST ABDOMEN PELVIS WITH CONTRAST, 11/16/2021, 8:32. , , CHEST 1 VIEW, 10/21/2011, 16:24. FINDINGS: Surgical changes and devices: None. Lungs and pleura: Atelectasis versus parenchymal scarring in the periphery of the right mid lung. Left perihilar mass decreased in size compared to prior CT scan with no evidence of recurrent or residual lung cancer No pleural effusions or pneumothorax. Mediastinum: Mediastinal contours are normal. Heart size is normal. Bones and chest wall: No suspicious bony abnormalities. Soft tissues appear unremarkable. IMPRESSION: No acute cardiopulmonary disease process. No evidence of residual recurrent lung cancer by plain film radiograph. Dictated by: Kylee Kirkland MD, PhD on 10/26/2022 at 14:04 Approved by: Kylee Kirkland MD, PhD on 10/26/2022 at 14:07
== END ==
PROVIDERS: Referring Provider Internal Medicine; Visit Provider Internal Medicine
DX: C34.92 Malignant neoplasm of unspecified part of left bronchus or lung (principal)
CPT/HCPCS: 71046